=== PATIENT | male | born 2000 | race Caucasian/White ===

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

== ENCOUNTER 2021-02-06 21:15 | Emergency (ER) | payer MEDICAID ==
[~2021-02-06] VITALS: Ht 175.3 cm; Wt 59.0 kg
--- NOTE | 2021-02-06 21:34 | NUR ---
pt bibself c/o loss of apetite, nausea, and weight loss x "few months". Pt aaox4 breathing evenly and unlabored. Pt attached to monitor and pox. PA at bedside for eval. Pt given blanket and call light within reach
[2021-02-06] MEDS ORDERED: ONDANSETRON 4 MG TAB.RAPDIS ONE (21:36)
--- NOTE | 2021-02-06 21:54 | NUR ---
lab at bedside
[2021-02-06] MEDS ORDERED: ONDANSETRON 4 MG TAB.RAPDIS SL ONE (22:00)
[2021-02-06 22:03] LABS: BASOPHILS # (AUTO) 0.2 K/uL (0.0-0.2); BASOPHILS % (AUTO) 2.1 % (0.0-2.0); EOSINOPHILS % (AUTO) 1.3 % (0.0-6.0); HEMATOCRIT 48 % (39-51); LYMPHOCYTES # (AUTO) 1.4 K/uL (0.8-4.8); LYMPHOCYTES % (AUTO) 20.3 % (20.0-44.0); MEAN CORPUSCULAR HGB CONC 34 g/dl (31.0-36.0); MEAN CORPUSCULAR VOLUME 95 fL (80-96); MONOCYTES # (AUTO) 0.8 K/uL (0.1-1.30); MONOCYTES % (AUTO) 11.8 % (2.0-12.0); NEUTROPHILS # (AUTO) 4.6 K/uL (1.8-8.9); NEUTROPHILS % (AUTO) 64.5 % (43.0-81.0); PLATELET COUNT (AUTO) 143 K/uL (150-450); RED BLOOD CELL COUNT(AUTO) 5.03 MIL/uL (4.5-6.0); WHITE BLOOD COUNT (AUTO) 7.1 K/uL (4.3-11.0)
[2021-02-06 22:15] LABS: ALBUMIN 4.8 g/dL (3.4-5.0); BILIRUBIN,DIRECT 0.2 mg/dL (0.0-0.2); BILIRUBIN,TOTAL 0.8 mg/dL (0.2-1.0); CALCIUM, SERUM 9.8 mg/dL (8.5-10.1); CREATININE 1.1 mg/dL (0.6-1.3); POTASSIUM 5.3 mmol/L (3.5-5.1); TOTAL PROTEIN, SERUM 8.5 g/dL (6.4-8.2)
[2021-02-06] MEDS ORDERED: ONDA4TAB5 PO (22:36)
--- NOTE | 2021-02-06 22:44 | NUR ---
Patient discharged to home in stable condition. Written and verbal after care instructions given. Patient verbalizes understanding of instruction. Pt ambulatory with a steady gait.
[2021-02-06 22:50] VITALS: BP 112/62
== END 2021-02-06 22:44 | disposition home or self-care (01) ==
LOC: ER 21:24
DX: R11.0 Nausea (principal); R63.0 Anorexia; F17.200 Nicotine dependence, unspecified, uncomplicated; Z88.1 Allergy status to other antibiotic agents
CPT/HCPCS: 36415; 80048; 80076; 83690; 85025; 93005; 99284; Q0162

== ENCOUNTER 2021-06-06 20:10 | Emergency (ER) | payer MEDICAID ==
[~2021-06-06] VITALS: Ht 175.3 cm; Wt 63.5 kg
[~2021-06-06 20:10] MED LIST: ONDA4TAB5 PO
--- NOTE | 2021-06-06 21:14 | NUR ---
PT BIBS C/O DIFFUSED ABDOMINAL PAIN WITH BODY ACHES, DIARRHEA, NAUSEA AND VOMITTING SINCE 10PM. PATIENT ALERT AND ORIENTED X3 AMBULATORY WITH NON LABORED BREATHING.
[2021-06-06] MEDS ORDERED: LIDOCAINE VISCOUS 2% UD 15 ML UDC ONE (21:21)
[2021-06-06] MEDS ORDERED: ONDANSETRON 4 MG TAB.RAPDIS ONE (21:21)
[2021-06-06] MEDS ORDERED: MAG HYDROX/AL HYDROX/SIMETH 30 ML UDC ONE (21:21)
--- NOTE | 2021-06-06 21:25 | NUR ---
SOFTWARE QUALITY ASSURANCE ENGINEER AT PT'S BEDSIDE. COVID ANTIGEN SWAB COLLECTED AND SENT TO LAB
[2021-06-06] MEDS ORDERED: LIDOCAINE VISCOUS 2% UD 15 ML UDC MM ONE (21:30)
[2021-06-06] MEDS ORDERED: MAG HYDROX/AL HYDROX/SIMETH 30 ML UDC PO ONE (21:30)
[2021-06-06] MEDS ORDERED: ONDANSETRON 4 MG TAB.RAPDIS SL ONE (21:30)
[2021-06-06 21:38] LABS: BASOPHILS % (AUTO) 0.2 % (0.0-2.0); EOSINOPHILS % (AUTO) 0.1 % (0.0-6.0); HEMATOCRIT 47 % (39-51); HEMOGLOBIN 15.8 g/dL (13.5-17.5); LYMPHOCYTES # (AUTO) 0.4 K/uL (0.8-4.8); LYMPHOCYTES % (AUTO) 2.3 % (20.0-44.0); MEAN CORPUSCULAR HGB CONC 33 g/dl (31.0-36.0); MEAN CORPUSCULAR VOLUME 95 fL (80-96); MONOCYTES # (AUTO) 0.6 K/uL (0.1-1.30); MONOCYTES % (AUTO) 3.3 % (2.0-12.0); NEUTROPHILS # (AUTO) 16.8 K/uL (1.8-8.9); NEUTROPHILS % (AUTO) 94.1 % (43.0-81.0); PLATELET COUNT (AUTO) 146 K/uL (150-450); RED BLOOD CELL COUNT(AUTO) 4.96 MIL/uL (4.5-6.0); WHITE BLOOD COUNT (AUTO) 17.9 K/uL (4.3-11.0)
[2021-06-06 21:44] LABS: BILIRUBIN,URINE SMALL (NEGATIVE); COLOR,URINE YELLOW (YELLOW); LEUKOCYTE ESTERASE ,URINE NEGATIVE (NEGATIVE); NITRITE, URINE NEGATIVE (NEGATIVE); PH,URINE 6.5 (5.0-8.0); PROTEIN,URINE 30 mg/dl (NEGATIVE); UGLUCOSE NEGATIVE (NEGATIVE); UROBILINOGEN,URINE 0.2 EU/dL (0.2)
--- NOTE | 2021-06-06 21:46 | NUR ---
CALL FROM LAB. RAPID COVID POSITIVE.
[2021-06-06 21:52] LABS: CALCIUM, SERUM 9.3 mg/dL (8.5-10.1); POTASSIUM 3.5 mmol/L (3.5-5.1)
[2021-06-06 21:57] LABS: BACTERIA,URINE RARE /HPF (None Seen); MUCUS,URINE Moderate /LPF (None Seen); SQUAMOUS EPITHELIAL CELL,UR 0-2 /HPF (None Seen)
[2021-06-06 21:59] LABS: ALBUMIN 4.9 g/dL (3.4-5.0); BILIRUBIN,DIRECT 0.3 mg/dL (0.0-0.2); BILIRUBIN,TOTAL 1.6 mg/dL (0.2-1.0); TOTAL PROTEIN, SERUM 8.8 g/dL (6.4-8.2)
[2021-06-06] MEDS ORDERED: IV NS 0.9% 1,000 ML BAG IV ONE (22:00)
[2021-06-06] MEDS ORDERED: ONDA4TAB5 PO (23:25)
[2021-06-06] MEDS ORDERED: CIPR-262 PO (23:25)
--- NOTE | 2021-06-06 23:55 | NUR ---
Patient discharged to home in stable condition. Written and verbal after care instructions given. Patient verbalizes understanding of instruction.
[2021-06-06 23:56] VITALS: BP 117/88
== END 2021-06-07 00:13 | disposition home or self-care (01) ==
LOC: ER 20:26
DX: U07.1 COVID-19 (principal); K52.9 Noninfective gastroenteritis and colitis, unspecified; N20.0 Calculus of kidney; F17.200 Nicotine dependence, unspecified, uncomplicated; Z88.1 Allergy status to other antibiotic agents
CPT/HCPCS: 36415; 74176; 80048; 80076; 81001; 83690; 85025; 87426; 96360; 99284; C9803; J7030; Q0162

== ENCOUNTER 2021-08-22 13:50 | Emergency (ER) | payer MEDICAID ==
[~2021-08-22] VITALS: Ht 167.6 cm; Wt 61.2 kg
[~2021-08-22 13:50] MED LIST changes: +CIPR-262 PO
--- NOTE | 2021-08-22 13:50 | NUR ---
BIBGirlfriend this 21yo/male patient with CC of "Been feeling sick x4d HERNANDEZ/Abdominal pain/N/V". Placed comfortably in bed. Vitals checked.
--- NOTE | 2021-08-22 14:28 | NUR ---
SEEN BY DR PHILLIPS AT BEDSIDE
--- NOTE | 2021-08-22 14:28 | NUR ---
IV CANNULA G18 INSERTED ON LEFT ARM. BLOOD DRAWN AND SENT TO LAB
[2021-08-22] MEDS ORDERED: ONDANSETRON HCL/PF 4 MG/2 ML VIAL ONE (14:33)
[2021-08-22] MEDS ORDERED: KETOROLAC TROMETHAMINE 15 MG/ML VIAL ONE (14:33)
[2021-08-22] MEDS ORDERED: FAMOTIDINE/PF INJ 20 MG/2 ML VIAL IV ONE (14:34)
[2021-08-22] MEDS: IV NS 0.9% 1,000 ML BAG IV ONE (14:41)
[2021-08-22] MEDS: FAMOTIDINE/PF INJ 20 MG/2 ML VIAL IV ONE (14:42)
[2021-08-22] MEDS: KETOROLAC TROMETHAMINE INJ 30 MG/ML VIAL IV ONE (14:42)
[2021-08-22] MEDS: ONDANSETRON HCL/PF 4 MG/2 ML VIAL IVP ONE (14:43)
--- NOTE | 2021-08-22 14:43 | NUR ---
DUE MEDS GIVEN
[2021-08-22 14:57] LABS: BASOPHILS % (AUTO) 0.1 % (0.0-2.0); EOSINOPHILS % (AUTO) 0.2 % (0.0-6.0); HEMATOCRIT 46 % (39-51); HEMOGLOBIN 14.9 g/dL (13.5-17.5); LYMPHOCYTES # (AUTO) 0.3 K/uL (0.8-4.8); LYMPHOCYTES % (AUTO) 5.1 % (20.0-44.0); MEAN CORPUSCULAR HGB CONC 33 g/dl (31.0-36.0); MEAN CORPUSCULAR VOLUME 95 fL (80-96); MONOCYTES # (AUTO) 0.7 K/uL (0.1-1.30); NEUTROPHILS % (AUTO) 83.6 % (43.0-81.0); PLATELET COUNT (AUTO) 97 K/uL (150-450); RED BLOOD CELL COUNT(AUTO) 4.78 MIL/uL (4.5-6.0)
[2021-08-22 15:20] LABS: ALBUMIN 4.3 g/dL (3.4-5.0); BILIRUBIN,DIRECT 0.2 mg/dL (0.0-0.2); BILIRUBIN,TOTAL 0.6 mg/dL (0.2-1.0); CALCIUM, SERUM 8.9 mg/dL (8.5-10.1); CREATININE 0.9 mg/dL (0.6-1.3); POTASSIUM 3.7 mmol/L (3.5-5.1); TOTAL PROTEIN, SERUM 7.9 g/dL (6.4-8.2)
[2021-08-22 16:21] LABS: BAND % (MANUAL) 2 % (0.0-5.0); LYMPHOCYTES % (MANUAL) 6 % (16-48); MONOCYTES % (MANUAL) 8 % (0-11.0); NEUTROPHILS % (MANUAL) 84 (42-76)
--- NOTE | 2021-08-22 16:23 | NUR ---
URINE SPECIMEN SENT TO LAB
[2021-08-22] MEDS ORDERED: ONDA4TAB5 PO (16:36)
[2021-08-22] MEDS ORDERED: FAMO-131 PO (16:36)
[2021-08-22 16:47] LABS: BILIRUBIN,URINE NEGATIVE (NEGATIVE); COLOR,URINE YELLOW (YELLOW); LEUKOCYTE ESTERASE ,URINE NEGATIVE (NEGATIVE); NITRITE, URINE NEGATIVE (NEGATIVE); PH,URINE 6.5 (5.0-8.0); PROTEIN,URINE NEGATIVE (NEGATIVE); UGLUCOSE NEGATIVE (NEGATIVE); UROBILINOGEN,URINE 0.2 EU/dL (0.2)
[2021-08-22 17:04] LABS: BACTERIA,URINE None seen /HPF (None Seen); MUCUS,URINE Moderate /LPF (None Seen); RBC,URINE 0-2 /HPF (0-2); SQUAMOUS EPITHELIAL CELL,UR 0-2 /HPF (None Seen); WBC,URINE 0-2 /HPF (0-3)
[2021-08-22 17:16] VITALS: BP 122/62
--- NOTE | 2021-08-22 17:16 | NUR ---
IV CANNULA REMOVED
== END 2021-08-22 17:17 | disposition home or self-care (01) ==
LOC: ER 13:54
DX: G43.801 Other migraine, not intractable, with status migrainosus (principal); R11.2 Nausea with vomiting, unspecified; Z88.0 Allergy status to penicillin; Z79.899 Other long term (current) drug therapy
CPT/HCPCS: 36415; 80048; 80076; 81001; 83690; 85007; 85025; 87086; 96361; 96374; 96375; 99284; J1885; J2405; J3490; J7030

== ENCOUNTER 2022-12-08 16:22 | Emergency (ER) | payer BC, MEDICAID ==
[~2022-12-08] VITALS: Ht 175.3 cm; Wt 61.2 kg
[~2022-12-08 16:22] MED LIST changes: +FAMO-131 PO
--- NOTE | 2022-12-08 17:00 | NUR ---
PATIENT CAME WITH ABDOMINAL PAIN ,NAUSEA AND VOMITING AND DIRRAHEA.ALERT AND ORIENTED.ON ROOM AIR.ATTACHED TO MONITOR.
--- NOTE | 2022-12-08 17:23 | NUR ---
TO ER BED 3, NO CHANGE IN CONDITION
--- NOTE | 2022-12-08 17:28 | NUR ---
URINE COLLECTED AND SEND TO LAB
[2022-12-08] MEDS ORDERED: IV NS 0.9% 1,000 ML BAG IV ONE (17:30)
[2022-12-08] MEDS ORDERED: ONDANSETRON HCL/PF 4 MG/2 ML VIAL IVP ONE (17:30)
[2022-12-08] MEDS ORDERED: FAMOTIDINE/PF INJ 20 MG/2 ML VIAL IV ONE ×2 (17:30→17:42)
--- NOTE | 2022-12-08 17:35 | NUR ---
DR GALVAN AT BED SIDE
--- NOTE | 2022-12-08 17:36 | NUR ---
IV 20G ON RT AC INSERTED AND BLOOD COLLECTED AND SEND TO LAB.
[2022-12-08] MEDS ORDERED: ONDANSETRON HCL/PF 4 MG/2 ML VIAL ONE (17:42)
[2022-12-08 18:11] LABS: BASOPHILS % (AUTO) 0.1 % (0.0-2.0); EOSINOPHILS % (AUTO) 0.3 % (0.0-6.0); HEMATOCRIT 45 % (39-51); HEMOGLOBIN 15.1 g/dL (13.5-17.5); LYMPHOCYTES # (AUTO) 0.5 K/uL (0.8-4.8); LYMPHOCYTES % (AUTO) 4.4 % (20.0-44.0); MEAN CORPUSCULAR HGB CONC 33 g/dl (31.0-36.0); MEAN CORPUSCULAR VOLUME 94 fL (80-96); MONOCYTES # (AUTO) 0.4 K/uL (0.1-1.30); NEUTROPHILS % (AUTO) 91.2 % (43.0-81.0); PLATELET COUNT (AUTO) 112 K/uL (150-450); RED BLOOD CELL COUNT(AUTO) 4.79 MIL/uL (4.5-6.0); WHITE BLOOD COUNT (AUTO) 10.9 K/uL (4.3-11.0)
[2022-12-08 18:27] LABS: ALBUMIN 4.5 g/dL (3.4-5.0); BILIRUBIN,DIRECT 0.3 mg/dL (0.0-0.2); BILIRUBIN,TOTAL 1.2 mg/dL (0.2-1.0); CALCIUM, SERUM 9.2 mg/dL (8.5-10.1); CREATININE 0.7 mg/dL (0.6-1.3); POTASSIUM 3.7 mmol/L (3.5-5.1); TOTAL PROTEIN, SERUM 7.9 g/dL (6.4-8.2)
[2022-12-08] MEDS ORDERED: ONDA4TAB5 PO (19:01)
--- NOTE | 2022-12-08 19:17 | NUR ---
IV removed. Catheter intact and site benign. Pressure and 4x4 applied to site. No bleeding noted.
--- NOTE | 2022-12-08 19:17 | NUR ---
Patient discharged to home in stable condition. Written and verbal after care instructions given. Patient verbalizes understanding of instruction.
[2022-12-08 19:18] VITALS: BP 114/74; TEMP 98.5; O2SAT 98
== END 2022-12-08 19:18 | disposition home or self-care (01) ==
LOC: ER 16:27
DX: R11.10 Vomiting, unspecified (principal); F17.200 Nicotine dependence, unspecified, uncomplicated; Z88.0 Allergy status to penicillin
CPT/HCPCS: 99284; 96374; 96361; 96375; 85025; 80048; 83690; 80076; 36415; J3490; J2405; J7030

== ENCOUNTER 2022-12-12 12:12 | Emergency (ER) | payer BC ==
[~2022-12-12] VITALS: Ht 175.3 cm; Wt 61.2 kg
--- NOTE | 2022-12-12 12:12 | NUR ---
BIBS C/O ABDOMINAL PAIN, DIARRHEA, AND VOMMITING SINCE 0630 THIS MORNING.
--- NOTE | 2022-12-12 12:53 | NUR ---
urine collected, sent to lab
--- NOTE | 2022-12-12 14:15 | NUR ---
TENONER OPERATOR AT BEDSIDE
--- NOTE | 2022-12-12 14:20 | NUR ---
PATIENT TAKEN TO CT VIA RANGEL
[2022-12-12 14:28] LABS: BASOPHILS % (AUTO) 0.4 % (0.0-2.0); EOSINOPHILS % (AUTO) 1.2 % (0.0-6.0); HEMATOCRIT 45 % (39-51); HEMOGLOBIN 14.6 g/dL (13.5-17.5); LYMPHOCYTES # (AUTO) 1.4 K/uL (0.8-4.8); LYMPHOCYTES % (AUTO) 20.1 % (20.0-44.0); MEAN CORPUSCULAR HGB CONC 33 g/dl (31.0-36.0); MEAN CORPUSCULAR VOLUME 94 fL (80-96); MONOCYTES # (AUTO) 0.7 K/uL (0.1-1.30); MONOCYTES % (AUTO) 9.8 % (2.0-12.0); NEUTROPHILS # (AUTO) 4.7 K/uL (1.8-8.9); NEUTROPHILS % (AUTO) 68.5 % (43.0-81.0); PLATELET COUNT (AUTO) 144 K/uL (150-450); RED BLOOD CELL COUNT(AUTO) 4.73 MIL/uL (4.5-6.0); WHITE BLOOD COUNT (AUTO) 6.8 K/uL (4.3-11.0)
[2022-12-12 14:40] LABS: CREATININE 0.7 mg/dL (0.6-1.3); POTASSIUM 4.4 mmol/L (3.5-5.1)
[2022-12-12 14:45] LABS: BILIRUBIN,DIRECT 0.2 mg/dL (0.0-0.2); BILIRUBIN,TOTAL 0.8 mg/dL (0.2-1.0); TOTAL PROTEIN, SERUM 7.3 g/dL (6.4-8.2)
[2022-12-12] MEDS ORDERED: ONDANSETRON HCL/PF 4 MG/2 ML VIAL ONE (14:46)
[2022-12-12] MEDS ORDERED: FAMOTIDINE/PF INJ 20 MG/2 ML VIAL IV ONE (14:46)
[2022-12-12] MEDS: IV NS 0.9% 1,000 ML BAG IV ONE (14:50)
[2022-12-12] MEDS: ONDANSETRON HCL/PF 4 MG/2 ML VIAL IVP ONE (14:52)
[2022-12-12] MEDS: FAMOTIDINE/PF INJ 20 MG/2 ML VIAL IV ONE (14:54)
--- NOTE | 2022-12-12 16:10 | NUR ---
IV removed. Catheter intact and site benign. Pressure and 4x4 applied to site. No bleeding noted.Patient discharged to home in stable condition. Written and verbal after care instructions given. Patient verbalizes understanding of instruction.
[2022-12-12 17:17] VITALS: BP 100/67; TEMP 98.1; O2SAT 97
== END 2022-12-12 16:00 | disposition home or self-care (01) ==
LOC: ER 12:56
DX: R10.84 Generalized abdominal pain (principal); F17.200 Nicotine dependence, unspecified, uncomplicated; Z79.899 Other long term (current) drug therapy; Z88.1 Allergy status to other antibiotic agents
CPT/HCPCS: 99285; 74176; 96374; 96361; 96375; 85025; 80048; 83690; 80076; 36415; J3490; J2405; J7030; A6403

== ENCOUNTER 2025-02-12 21:32 | Emergency (ER) | payer BC, MEDICAID ==
[~2025-02-12] VITALS: Ht 172.7 cm; Wt 63.5 kg
[2025-02-12] MEDS ORDERED: ONDANSETRON HCL/PF 4 MG/2 ML VIAL ONE (22:36)
[2025-02-12] MEDS: IV NS 0.9% 1,000 ML BAG IV ONE (22:45)
[2025-02-12] MEDS: ONDANSETRON HCL/PF 4 MG/2 ML VIAL IVP ONE (22:45)
[2025-02-12 22:53] LABS: PLATELET COUNT (AUTO) 148 K/uL (150-450); RED BLOOD CELL COUNT(AUTO) 5.15 MIL/uL (4.5-6.0); RED CELL DISTRIBUTION WIDTH 13.3 % (11.5-15.0); WHITE BLOOD COUNT (AUTO) 12.3 K/uL (4.3-11.0)
[2025-02-12] MEDS ORDERED: ONDA4TAB11 PO (22:57)
[2025-02-12] MEDS ORDERED: FAMO20TA8 PO (22:57)
[2025-02-12] MEDS ORDERED: LOPE2TAB25 PO (22:57)
[2025-02-12 22:59] LABS: CALCIUM, SERUM 9.2 mg/dL (8.5-10.1); CREATININE 1.0 mg/dL (0.6-1.3); SODIUM SERUM 141.0 mmol/L (136-145); UREA NITROGEN, BLOOD 14.0 mg/dL (7-18)
[2025-02-12 23:05] LABS: ASPARTATE AMINOTRANSFERASE 15.0 U/L (15-37); TOTAL PROTEIN, SERUM 8.8 g/dL (6.4-8.2)
[2025-02-12 23:59] VITALS: BP 130/70; TEMP 98.9; O2SAT 97
== END 2025-02-12 23:59 | disposition home or self-care (01) ==
LOC: ER 21:34
DX: R11.2 Nausea with vomiting, unspecified (principal); R19.7 Diarrhea, unspecified; F17.200 Nicotine dependence, unspecified, uncomplicated; Z88.0 Allergy status to penicillin
CPT/HCPCS: 99283; 96374; 96361; 85025; 80048; 83690; 80076; 36415; J2405; J7030